=== PATIENT | male | born 1965 | race Caucasian/White ===

== ENCOUNTER 2018-02-15 21:08 | Inpatient (IN) | payer OTHER ==
[~2018-02-15] VITALS: Ht 185.4 cm; Wt 100.7 kg
[~2018-02-15 21:08] MED LIST: CLEOCIN HCL300 MG PO; NORCO 5-325 TA1 EACH PO
[2018-02-15 21:18] VITALS: BP 167/91
--- NOTE | 2018-02-15 22:00 | NUR ---
PER LABORATORY BLOOD RESULTS WILL BE DELAYED DUE TO LIPID CLEARING ON BLOD
[2018-02-15 22:05] LABS: BE -2.6 mmol/L (-2 to +3); HCO3 20.7 mmol/L (22.0-26.0); PCO2 32.3 mmHg (35.0-45.0); PO2 88.9 mmHg (75.0-100.0); pH 7.424 (7.340-7.450)
[2018-02-15 22:22] LABS: HEMATOCRIT 47.5 % (42.0-52.0); HEMOGLOBIN 17.2 gm/dL (14.0-18.0); MCH 32.4 pg (26.0-34.0); MCHC 36.2 g/dL (28.0-37.0); MCV 89.7 fL (80.0-100.0); MPV 10.1 fl. (7.2-11.1); NUCLEATED RBCS 0 /100WBC; PLATELET COUNT* 239 thou/uL (150-400); RBC 5.29 mil/uL (4.50-6.00); RDW-CV 12.7 % (10.5-14.5); WBC 7.3 thou/uL (4.0-11.0)
[2018-02-15 22:35] LABS: CHLORIDE 89 mmol/L (98-107); POTASSIUM 4.4 mmol/L (3.5-5.1); SODIUM 125 mmol/L (136-145)
[2018-02-15 22:36] LABS: ANION GAP 11 mmol/L (7-16); BUN 28 mg/dL (7-18); CO2 25 mmol/L (21-32); CREATININE 0.9 mg/dL (0.6-1.3)
[2018-02-15 22:41] LABS: GLUCOSE 661 mg/dL (70-99); SGOT 43 U/L (15-37)
[2018-02-15 22:42] LABS: ALKALINE PHOSPHATASE 311 U/L (46-116); CALCIUM 9.6 mg/dL (8.5-10.1); SGPT 66 U/L (30-65); TOTAL BILIRUBIN 0.6 mg/dL (<0.1-1.0); TOTAL PROTEIN 7.2 g/dL (6.4-8.2)
[2018-02-15 22:43] LABS: ALBUMIN 3.8 g/dL (3.4-5.0)
[2018-02-15 23:08] LABS: URINE BILIRUBIN NEGATIVE (Negative); URINE BLOOD NEGATIVE (Negative); URINE CLARITY CLEAR; URINE COLOR STRAW; URINE GLUCOSE-RANDOM 3+ (Negative); URINE KETONES 1+ (Negative); URINE LEUKOCYTES-REFLEX NEGATIVE (Negative); URINE NITRITE-REFLEX NEGATIVE (Negative); URINE PROTEIN NEGATIVE (Negative); URINE UROBILINOGEN 0.2 E.U./dl (0.2-1.0)
[2018-02-15 23:16] LABS: AMP/METHAMP POSITIVE (Negative); BARBITURATES Negative (Negative); BENZODIAZEPINES Negative (Negative); COCAINE Negative (Negative); METHADONE Negative (Negative); OPIATES Negative (Negative); PCP Negative (Negative); THC POSITIVE (Negative)
[2018-02-15 23:26] LABS: ABSOLUTE EOSINOPHILS 0.5 thou/uL (0.0-0.7); ABSOLUTE LYMPHOCYTES 3.4 thou/uL (0.8-5.3); ABSOLUTE MONOCYTES 0.8 thou/uL (0.0-1.2); ABSOLUTE NEUTROPHILS 2.6 thou/uL (1.6-8.1); ANISOCYTOSIS Occasional; ATYPICAL LYMPHS 2 %; METAMYELOCYTES 1 %; PLATELET ESTIMATE ADEQUATE
[2018-02-15 23:27] LABS: LARGE PLATELETS OCCASIONAL; TOXIC GRANULATION 1+
[2018-02-16] VITALS (8 sets, daily range): BP systolic 116–162; BP diastolic 68–96
--- NOTE | 2018-02-16 05:12 | NUR ---
PATIENT ARRIVED VIA CART FROM ED AROUND 0125. A/OX4, SOMEWHAT FLAT BUT APPROPRIATE. PT DENIED ANY PAIN. VSS. TELE MONITOR TRACING SR. ON ROOM AIR. IV SALINE LOCKED. UP AD ROBERT. VOIDING IN BR. ORDERS RECEIVED FOR ONETIME DOSE LANTUS, WAITING FOR PHARMACY TO VERIFY. SEE CHARTING FOR OTHER B.S.'S. ADMISSION HX/ASSESSMENT COMPLETED. CALL LIGHT IN REACH, WILL CONTINUE WITH PLAN OF CARE.
--- NOTE | 2018-02-16 14:04 | NUR ---
Pt was asleep when CM went to assess, will f/u later
[2018-02-16 17:11] LABS: GLYCOHEMOGLOBIN (HGB A1C) 12.9 % (4.8-5.6)
--- NOTE | 2018-02-16 23:45 | NUR ---
ASSUMED PT CARE AT 19:15 . REPORT RECEIVED FORM NURSE. PT IS ALERT, AWAKE ORIENTED X 4. DAUGHTER AT BEDSIDE. VITAL SIGNS TAKEN, RESULT WITHIN NORMAL LIMIT. ASSESSMENT PERFORMED REFER TO CHARTING. PT HAS NO CONCERN OR COMLAINT OF ANY KIND. NO PAIN AT THIS MOMENT. BLOOD SUGARLEVEL IS 377. PT WANTED SOME SNACK, EDUCATION PROVIDED ON THE NEED TO CONTROL DIET AND REMINDED OF NUTRIONIST CONSULT TOMORROW. SNACK HELD UNTILL TREATMENT OF HYPERGLYCEMIA WITH INSULIN ORDERED. PT FOUND IN BED EATING A LARGE BURGER BROUGHT TO HIM BY DAUGHTER. MORE EDUCATION PROVIDED ON DIET. INSULIN LISPRO ADMINISTERED ORDERED. SINUS RYHTM ON THE MONITOR. SCHEDULLED FOR US OF THE ABDOMEN IN THE AM. SO PT NPO AT MIDNIGHT. AT MIDNIGHT, TEMPERATURE IS 99.0 AND PT IS A LITTLE SWEATY, AND WARM. ACCUCHECK WAS CHECKED TO BE ON THE SAFE SIDE. RESULT 365. PT REPORT NO SIGNS AND SYMPTOMS OF HYPERGLYCEMIA AT THIS MOMENT. WILL CONTINUE TO MONITOR FOR SYMPTOMS AND ADDRESS THE ISSUE TO DR SSIS ARCHITECT IN THE AM FOR FURTHER TREATMENT IF NECESSARY.
[2018-02-17 03:42] VITALS: BP 111/71
[2018-02-17 04:18] LABS: HEMOGLOBIN 15.6 gm/dL (14.0-18.0); MCH 32.8 pg (26.0-34.0); MCHC 37.1 g/dL (28.0-37.0); MCV 88.4 fL (80.0-100.0); RBC 4.75 mil/uL (4.50-6.00); RDW-CV 12.7 % (10.5-14.5); WBC 7.2 thou/uL (4.0-11.0)
[2018-02-17 05:13] LABS: CHLORIDE 98 mmol/L (98-107); POTASSIUM 3.6 mmol/L (3.5-5.1); SODIUM 132 mmol/L (136-145)
[2018-02-17 05:17] LABS: ANION GAP 6 mmol/L (7-16); BUN 13 mg/dL (7-18); CO2 28 mmol/L (21-32); CREATININE 0.8 mg/dL (0.6-1.3); GLUCOSE 284 mg/dL (70-99)
[2018-02-17 05:18] LABS: CALCIUM 8.4 mg/dL (8.5-10.1); TROPONIN-I LEVEL <0.06 ng/mL (<0.06)
[2018-02-17 08:03] VITALS: BP 125/84
[2018-02-17 13:16] VITALS: BP 134/89
--- NOTE | 2018-02-17 13:22 | EKG ---
[place] [address] ELECTROCARDIOGRAM REPORT Name: INAMICHAEL Room: [place] [address] ADM IN M.R.#: [id number] Admission: 02/15/18 Attend Phys: Ricco Diamond Discharge: Date of : 67 Report #: [id number] THIS REPORT FOR: //name// [facility] Test Date: 2018-02-17 Test Time: 08:16:20 Pat Name: MICHAEL BUCKLEY Department: Room: [place] [id number] Gender: M Book Agent: 27 : [id number] Requested By: Amos Santos Order Number: [id number] Kassandra MD: Donis Qureshi Measurements Intervals [place] Rate: 68 P: 58 [place]: 143 QRS: 14 QRSD: 96 T: 45 QT: 410 QTc: 437 Interpretive Statements Sinus rhythm No previous ECG available for comparison Electronically Signed On 02-17-2018 13:22:18 CDT by Donis Qureshi [email or web address] <ELECTRONICALLY SIGNED> By: Donis Qureshi MD, [facility] 02/17/18 1322 0816 08 Donis Qureshi MD, FACC /EPI
[2018-02-17 17:28] VITALS: BP 120/75
[2018-02-17 20:00] VITALS: BP 115/73
[2018-02-18] VITALS: BP 116/71
--- NOTE | 2018-02-18 01:31 | NUR ---
PT ALERT ORIENTED. NPO AT [place] FOR CARDIAC STRESS TEST. TELEMETRY SHOWS SR. UP AD ROBERT IN ROOM. WILL CONTINUE TO MONITOR.
[2018-02-18 04:30] VITALS: BP 125/72
[2018-02-18 04:36] LABS: HEMATOCRIT 42.6 % (42.0-52.0); HEMOGLOBIN 15.6 gm/dL (14.0-18.0); MCH 32.6 pg (26.0-34.0); MCHC 36.6 g/dL (28.0-37.0); MCV 89.1 fL (80.0-100.0); MPV 9.5 fl. (7.2-11.1); RBC 4.78 mil/uL (4.50-6.00); RDW-CV 12.6 % (10.5-14.5); WBC 6.1 thou/uL (4.0-11.0)
[2018-02-18 04:57] LABS: POTASSIUM 3.7 mmol/L (3.5-5.1)
[2018-02-18 06:07] LABS: CHOLESTEROL 325 mg/dL (<200); SERUM ASSESSMENT Gross Lipemia
[2018-02-18 06:08] LABS: HDL CHOLESTEROL 19 mg/dL (>40); LDL CHOLESTEROL ND mg/dL (<100); TC:HDL 17.1 Ratio (Not establshd); TRIGLYCERIDE 2258 mg/dL (<150); VLDL 452 mg/dL (<40)
[2018-02-18 06:20] LABS: CALCIUM 8.8 mg/dL (8.5-10.1); CREATININE 0.8 mg/dL (0.6-1.3); MAGNESIUM 1.9 mg/dL (1.8-2.4); TOTAL BILIRUBIN 0.2 mg/dL (<0.1-1.0); TOTAL PROTEIN 5.5 g/dL (6.4-8.2)
[2018-02-18 06:21] LABS: ALBUMIN 2.9 g/dL (3.4-5.0)
[2018-02-18 08:30] VITALS: BP 121/78
--- NOTE | 2018-02-18 08:30 | NUR ---
ASSUMED PT. CARE AND RECEIVED REPORT AT 0730. PT A/OX4, VSS, MONITOR ON TRACING SR. PT. DENIES CURRENT PAINS/SOB. ON RA @ 98%. PT. AWARE OF NPO STATUS. 1/2 DOSE INSULIN GIVEN THIS MORNING DUE TO SUGAR 261. FULL ASSESSMENT COMPLETED, REFER TO CHARTING.
--- NOTE | 2018-02-18 12:30 | NUR ---
MET WITH PT TO DISCUSS HOME SITUATION/DC PLANNING. PT LIVES WITH HIS PARENTS. STATES HE IS 'SELF EMPLOYED AND UNINSURED.' HE IS INDEPENDENT AND ACTIVE. USES NO EQUIPMENT. DX WITH NEW DM. HAS EDUCATION MATERIAL AND FINGERPRINTER IN TO SEE PT. GAVE COMMUNITY RESOURCES AND DISCUSSED. PT PLANS TO RETURN HOME WITH PARENTS. DENIES OTHER NEEDS
--- NOTE | 2018-02-18 16:13 | CARDNUC ---
[place] [address] CARDIAC NUCLEAR IMAGING REPORT Name: INAMICHAEL Room: [address] IN [facility]#: [id number] Admission: 02/15/18 Attend Phys: Zack Mckeon Discharge: Date of : 67 Date of Service: 02/18/18 1613 Report #: [id number] THIS REPORT FOR: //name// APPROVED REPORT Study performed: 02/17/2018 10:58:00 Exam: Nuclear Stress Test Indication: Chest pain Patient Location: In-Patient Room #: 233 Stress Tech: Azalia Coto Stress Nurse: Rachel Fontaine RN Ht: 6 ft 1 in Wt: 220 lbs BSA: 2.24 m2 BMI: 29.02 Medical History Medical History: Diabetes, HTN, Hyperlipidemia, , Smoking Medications: enoxaparin, gemfibrozil, lisinopril, asa Allergies: penicillin Cardiac Risk Factors: Age, Hyperlipidemia, HTN, DM, Smoking Stress Test Details Stress Test: Pharmacologic stress testing performed using 0.4 mg of regadenoson per 5 mL given IV over 10 seconds. Reason for pharmacologic stress test: physical limitation. HR Resting HR: 77 bpm Max Heart Rate (APMHR): 169 bpm Max HR Achieved: 99 bpm Target HR (85% APMHR): 143 bpm % of APMHR: 58 Recovery HR: 92 bpm BP Resting BP: 122/81 mmHg Max BP: 115/71 mmHg ECG Resting ECG: Sinus Rhythm Stress ECG: Sinus Rhythm ST Change: None Arrhythmia: None Recovery ECG: [place] [address] CARDIAC NUCLEAR IMAGING REPORT Name: INAMICHAEL Saavedra Room: [address] IN [facility]#: [id number] Admission: 02/15/18 Attend Phys: Zack Mckeon Discharge: Date of : 67 Date of Service: 02/18/18 1613 Report #: [id number] Change: None Recovery Arrhythmia: None Clinical Reason for Termination: Completed protocol Stress Symptoms: None Exercise duration: 0 min sec Exercise capacity: 1.0 METs The patient had no significant symptoms with Lexiscan infusion. Stress ECG Conclusion The baseline 12-lead electrocardiogram showed sinus rhythm without significant ST or T wave abnormality. EKGs obtained during and post Lexiscan infusion showed no significant ST or T wave changes when compared to baseline. There were no stress-induced arrhythmias. NM EXAM: Myocardial Perfusion REST/STRESS Imaging Protocol: Rest Tc-99m/Stress Tc-99m 1 day Resting Data Rest SPECT myocardial perfusion imaging was performed in supine position 45 minutes following the intravenous injection of 10.4 mCi of Tc-99m Sestamibi. Time of rest injection: 944 Date: 02/18/2018 The images were gated to evaluate regional wall motion and calculate left ventricular ejection fraction. Administration Route: IV Administration Site: Right Arm Pharmacologic Stress Pharmacologic stress test was performed by injecting Regadenoson 0.4 mg IV push followed by the intravenous injection of 35.2 mCi of Tc-99m Sestamibi. Time of stress injection: 1130 Date: 02/18/2018 Administration Route: IV Administration Site: Right Arm Gated Stress SPECT was performed 45 minutes after stress injection. The images were gated to evaluate regional wall motion and calculate left ventricular ejection fraction. Prone imaging was performed. Study Quality Study: Good Artifact: [place] [address] CARDIAC NUCLEAR IMAGING REPORT Name: MICHAEL BUCKLEY Room: [address] IN [facility]#: [id number] Admission: 02/15/18 Attend Phys: Zack Mckeon Discharge: Date of : 67 Date of Service: 02/18/18 1613 Report #: [id number] Study Data At rest, the left ventricular ejection fraction was 61%.. Post stress, the left ventricular ejection was 74%.. TID = 1.07. Perfusion Perfusion images obtained at rest and post stress in the supine position show a moderate region of photopenia involving the basal to mid inferior wall that resolves completely on post stress prone imaging suggesting diaphragmatic attenuation artifact. No other fixed or reversible defects were identified. Wall Motion Normal left ventricular wall motion. Nuclear Conclusion ECG Findings: negative for ischemia Clinical Findings: negative for ischemia Nuclear Findings: negative for ischemia Exercise Capacity: not assessed Left Ventricular Function: normal Risk Study: low Myocardial perfusion images show no defect to suggest infarct or ischemia. Left ventricular systolic function appears normal on gated studies. This is a low risk study. <Conclusion> The baseline 12-lead electrocardiogram showed sinus rhythm without significant ST or T wave abnormality. EKGs obtained during and post Lexiscan infusion showed no significant ST or T wave changes when compared to baseline. There were no stress-induced arrhythmias. <ELECTRONICALLY SIGNED> By: Dg Pérez MD, FACC 02/18/18 1613 161 1613 Dg Pérez MD, FACC /INF
--- NOTE | 2018-02-18 16:41 | 2DMMODE ---
[place] [address] 2 D/M-MODE ECHOCARDIOGRAM Name: INAMICHAEL Room: [place] [address] ADM IN [facility]#: [id number] Admission: 02/15/18 Attend Phys: Zack Mckeon Discharge: Date of : 67 Date of Service: 02/18/18 1641 Report #: [id number] THIS REPORT FOR: //name// APPROVED REPORT Study performed: 02/18/2018 13:52:40 EXAM: Comprehensive 2D, Doppler, and color-flow Echocardiogram Patient Location: In-Patient Room #: [facility] BSA: 2.22 HR: 72 bpm BP: 125/72 mmHg Rhythm: NSR Other Information Study Quality: Good Indications Chest Pain 2D Dimensions LVEF(%): 78.45 (>50%) IVSd: 12.30 (7-11mm) LVOT Diam: 24.10 (18-24mm) LVDd: 47.41 mm PWd: 10.27 (7-11mm) Ascending Ao: 32.11 (22-36mm) LVDs: 25.09 (25-40mm) Aortic Root: 32.11 mm Macias's LVEF: 78.45 % Volumes Left Atrial Volume (Systole) LA ESV Index: 15.50 mL/m2 Aortic Valve AoV Peak Jovanni.: 1.42 m/s AO Peak Gr.: 8.04 mmHg LVOT Max P.92 mmHg AO Mean Gr.: 4.94 mmHg LVOT Mean P.28 mmHg LVOT Max V: 1.32 m/s AO V2 VTI: 23.60 cm LVOT Mean V: 0.82 m/s KAVIN (VTI): 4.56 cm2 LVOT V1 VTI: 23.57 cm Mitral Valve E/A Ratio: 1.46 [place] [address] 2 D/M-MODE ECHOCARDIOGRAM Name: MICHAEL BUCKLEY Room: [place] [address] ADM IN .R.#: [id number] Admission: 02/15/18 Attend Phys: Zack Mckeon Discharge: Date of : 67 Date of Service: 02/18/18 1641 Report #: [id number] MV Decel. Time: 192.69 ms MV E Max Jovanni.: 0.96 m/s MV PHT: 55.88 ms MVA (PHT): 3.94 cm2 TDI E/Lateral E': 5.65 E/Medial E': 6.00 Medial E' Jovanni.: 0.16 m/s Lateral E' Jovanni.: 0.17 m/s Pulmonary Valve PV Peak Jovanni.: 1.34 m/s PV Peak Gr.: 7.23 mmHg Left Ventricle The left ventricle is normal size. There is normal LV segmental wall motion. There is normal left ventricular wall thickness. Left ventricular systolic function is normal. The left ventricular ejection fraction is within the normal range. LVEF is 60-65%. The left ventricular diastolic function is normal. Right Ventricle The right ventricle is normal size. The right ventricular systolic function is normal. Atria The left atrium size is normal. The right atrium size is normal. Aortic Valve The aortic valve is normal in structure. No aortic regurgitation is present. There is no aortic valvular stenosis. Mitral Valve The mitral valve is normal in structure. There is no mitral valve regurgitation noted. No evidence of mitral valve stenosis. Tricuspid Valve The tricuspid valve is normal in structure. Unable to assess PA pressure. Trace tricuspid regurgitation. Pulmonic Valve The pulmonary valve is normal in structure. There is no pulmonic valvular regurgitation. Great Vessels The aortic root is normal in size. IVC [place] [address] 2 D/M-MODE ECHOCARDIOGRAM Name: MICHAEL BUCKLEY Room: [address] IN .R.#: [id number] Admission: 02/15/18 Attend Phys: Zack Mckeon Discharge: Date of : 67 Date of Service: 02/18/18 1641 Report #: [id number] collapses with >50% inspiration Pericardium There is no pericardial effusion. <Conclusion> Left ventricular systolic function is normal. The left ventricular ejection fraction is within the normal range. <ELECTRONICALLY SIGNED> By: Gordy Asher MD, [facility] 02/18/181640 40 40 Gordy Asher MD, FACC /INF
[2018-02-18] MEDS ORDERED: GLUCAGEN1 M2 IM (18:22)
[2018-02-18] MEDS ORDERED: LISINOPRIL5 MG PO (18:22)
[2018-02-18] MEDS ORDERED: GLYBURIDE PO (18:24)
[2018-02-18] MEDS ORDERED: METFORMIN HCL500 MG PO (18:26)
[2018-02-18] MEDS ORDERED: ASPIR 8181 MG PO (18:27)
[2018-02-18] MEDS ORDERED: GEMFIBROZIL 60600 MG PO (18:29)
[2018-02-18 18:30] VITALS: BP 121/78
--- NOTE | 2018-02-18 19:06 | NUR ---
RECEIVED CALL FROM DR. RDZ, STRESS TEST NEGATIVE AND PT. OKAY TO DC FROM CV STAND POINT. PT. GIVEN EDUCATION ON GLUCOSE METER AND HOW TO USE IT. PT. ABLE TO DEMONSTRATE PROPER USAGE AND DISCARDING OF MATERIALS. SCRIPT CALLED TO [facility] FOR LANCETS AND TEST STRIPS FOR ONE TOUCH METER PER ORDERS. PT. GIVEN DC INSTRUCTIONS, SCRIPTS, AND CARENOTES. ALL QUESTIONS ANSWERED. PT. AMBULATED TO PERSONAL VEHICLE, ALL BELONGINGS ACCOUNTED FOR.
== END 2018-02-18 19:08 | disposition home or self-care (01) | DRG 639 ==
LOC: M.ERS 21:08 → M.TBA-ER 23:40 → M.2W 23:40
PROVIDERS: Family Medicine; Internal Medicine Cardiovascular Disease; Personal Emergency Response Attendant; ADMIT Internal Medicine
DX: E11.65 Type 2 diabetes mellitus with hyperglycemia (principal); F17.210 Nicotine dependence, cigarettes, uncomplicated; E78.5 Hyperlipidemia, unspecified; E66.9 Obesity, unspecified; F19.10 Other psychoactive substance abuse, uncomplicated; I10 Essential (primary) hypertension; K76.0 Fatty (change of) liver, not elsewhere classified; Z88.0 Allergy status to penicillin; Z79.1 Long term (current) use of non-steroidal anti-inflammatories (NSAID); Z83.3 Family history of diabetes mellitus; Z68.29 Body mass index [BMI] 29.0-29.9, adult